=== PATIENT | female | born 2000 | race Caucasian/White ===

== ENCOUNTER 2019-04-09 05:00 | Inpatient (IN) ==
[2019-04-09] MEDS ORDERED: Naloxone 0.4 MG/ML INJ IVP PRN (05:05)
[2019-04-09] MEDS ORDERED: Metoclopramide 10 MG/2 ML VIAL IVP PRN (05:05)
[2019-04-09] MEDS ORDERED: miSOPROStoL 25 MCG TABLET PO PRN (05:05)
[2019-04-09] MEDS ORDERED: Famotidine 20 MG/2 ML VIAL IVP PRN (05:05)
[2019-04-09] MEDS ORDERED: Ondansetron 4 MG/2 ML VIAL IVP PRN (05:05)
[2019-04-09] MEDS ORDERED: Lidocaine 1% 20 ML MDV INFILT PRN (05:05)
[2019-04-09] MEDS ORDERED: D5% in 0.45% NACL 1,000 ML IVC SCH (05:15)
[2019-04-09 05:54] LABS: Basophils % 0.3 %; Eosinophils # 0.1 K/mcL (0.0-0.6); Eosinophils % 1.1 %; Hematocrit 36.8 % (35.3-44.9); Hemoglobin 12.3 g/dL (11.5-15.4); Immature Granulocytes % 0.5 % (0-4); Lymphocytes % 22.7 %; Mean Corpuscular HGB Conc 33.4 g/dL (31.6-35.5); Mean Corpuscular Hemoglobin 31.1 pg (28.0-33.3); Mean Corpuscular Volume 93.2 fL (83.0-100.0); Monocytes # 0.7 K/mcL (0.0-1.3); Monocytes % 7.9 %; Neutrophils # 5.9 K/mcL (1.6-8.9); Platelet Count 228 K/mcL (140-400); Red Blood Count 3.95 M/mcL (3.82-4.97); Red Cell Distribution Width 12.5 % (11.5-14.5); Segmented Neutrophils % 67.5 %; White Blood Count 8.8 K/mcL (4.3-11.1)
[2019-04-09 06:02] LABS: Amphetamine Screen,Urine Negative ng/mL (Cutoff=1000); Barbiturate Screen,Urine Negative ng/mL (Cutoff=200); Benzodiazepines Screen,Urine Negative ng/mL (Cutoff=200); Cannabinoid Screen,Urine Negative ng/mL (Cutoff = 50); Cocaine Screen,Urine Negative ng/mL (Cutoff= 300); Opiate Screen,Urine Negative ng/mL (Cutoff=300); Phencyclidine Screen,Urine Negative ng/mL (Cutoff=25)
[2019-04-09] MEDS ORDERED: Oxytocin 20 units/ LR 1000 mL 20 UNIT/1,000 ML BAG IVC SCH (13:15)
[2019-04-09] MEDS ORDERED: EPHEDrine 50 MG/ML VIAL IVP PRN (13:34)
[2019-04-09] MEDS ORDERED: Ringers Solution, Lactated 1,000 ML ONE ×2 (13:38→14:02)
[2019-04-09] MEDS ORDERED: Epidural Premix (fent/bupiv) 110 ML EP SCH (13:45)
[2019-04-09] MEDS: *HR* Nalbuphine 10 MG/ML AMPUL IVP PRN ×2 (15:49→17:52)
[2019-04-09] MEDS ORDERED: *HR* FentaNYL (PF) 100 MCG/2 ML VIAL ONE (20:52)
[2019-04-09] MEDS ORDERED: Ropivacaine/PF 0.2% 20 ML VIAL ONE (20:52)
[2019-04-10] MEDS ORDERED: Oxytocin 20 units/ LR 1000 mL 20 UNIT/1,000 ML BAG IVC SCH (00:19)
[2019-04-10] MEDS ORDERED: Benzocaine/Menthol 56 GM AEROSOL SPRAY TP PRN (00:19)
[2019-04-10] MEDS ORDERED: Rho Immune Globulin 1,500 UNIT SYRINGE IM PRN (00:19)
[2019-04-10] MEDS: Ibuprofen 600 MG TABLET PO SCH ×3 (06:16→18:52)
[2019-04-10] MEDS: Acetaminophen 325 MG TABLET PO SCH ×3 (08:27→20:44)
[2019-04-10] MEDS: Prenatal Vit/FA 1 EACH TABLET PO SCH (08:27)
[2019-04-10] MEDS: Lanolin 7 G OINT...G. TP PRN ×2 (18:51→20:45)
[2019-04-11] MEDS: Ibuprofen 800 MG TABLET PO PRN ×2 (01:11→09:02)
[2019-04-11] MEDS: Prenatal Vit/FA 1 EACH TABLET PO SCH (09:02)
[2019-04-11] MEDS: Lanolin 7 G OINT...G. TP PRN (09:13)
[2019-04-11 09:43] VITALS: BP 113/73
== END 2019-04-11 12:40 | disposition home or self-care (01) | DRG 560 ==
LOC: 1NENULAB 05:03 → 1NENUOBS 04-10 00:20
PROVIDERS: ADMIT Obstetrics & Gynecology; ATTEND Obstetrics & Gynecology

== ENCOUNTER → 2021-08-21 05:00 | Observation (INO) ==
[2021-08-21 02:47] LABS: Basophils % 0.3 %; Eosinophils # 0.1 K/mcL (0.0-0.6); Eosinophils % 0.8 %; Hematocrit 33.2 % (35.3-44.9); Hemoglobin 11.4 g/dL (11.5-15.4); Immature Granulocytes % 0.5 % (0-4); Lymphocytes # 1.6 K/mcL (0.6-4.6); Lymphocytes % 13.2 %; Mean Corpuscular HGB Conc 34.3 g/dL (31.6-35.5); Mean Corpuscular Hemoglobin 30.7 pg (28.0-33.3); Mean Corpuscular Volume 89.5 fL (83.0-100.0); Mean Platelet Volume 10.6 fL (9.4-12.4); Monocytes # 0.9 K/mcL (0.0-1.3); Monocytes % 7.5 %; Neutrophils # 9.2 K/mcL (1.6-8.9); Platelet Count 220 K/mcL (140-400); Red Blood Count 3.71 M/mcL (3.82-4.97); Red Cell Distribution Width 12.5 % (11.5-14.5); Segmented Neutrophils % 77.7 %; White Blood Count 11.9 K/mcL (4.3-11.1)
[2021-08-21 02:51] LABS: Bacteria,Urine Few per hpf (None-Few); Bilirubin,Urine Negative (Negative); Blood,Urine Negative (Negative); Budding Yeast,Urine Few per hpf (None Seen); Clarity,Urine Turbid (Clear); Color,Urine Light-Yellow (Yellow); Glucose,Urine (UA) Normal (Normal); Ketones,Urine Negative (Negative); Leukocyte Esterase,Urine Moderate (Negative); Nitrite,Urine Negative (Negative); Protein,Urine Trace mg/dL (Neg-Trace); RBC,Urine 0-3 per hpf (0-3); Specific Gravity,Urine 1.016 (1.010-1.025); Squamous Epithelial Cell,Urine Moderate per hpf (None-Few); Urobilinogen,Urine Normal (Normal); WBC,Urine 0-3 per hpf (0-3)
[2021-08-21 04:03] LABS: Albumin 3.7 g/dL (3.5-5.7); Albumin/Globulin Ratio 1.3 (1.1-2.2); Bilirubin,Indirect 0.3 mg/dL (0.0-1.0); Bilirubin,Total 0.3 mg/dL (0.3-1.0); Globulin 2.8 g/dL (2.4-3.5); Total Protein 6.5 g/dL (6.4-8.9)
[~2021-08-21 05:00] MED LIST: Morphine Sulfate 2 MG/ML SYRINGE IVP PRN; Ondansetron 4 MG/2 ML VIAL IVP PRN; Ringers Solution, Lactated 1,000 ML IVC SCH
== END | disposition other institution (70) ==
LOC: 1NENULAB
PROVIDERS: ADMIT Registered Nurse; ATTEND Registered Nurse

== ENCOUNTER → 2021-12-21 09:11 | Observation (INO) ==
[2021-12-21 05:51] LABS: Bacteria,Urine Few per hpf (None-Few); Bilirubin,Urine Negative (Negative); Blood,Urine Negative (Negative); Clarity,Urine Turbid (Clear); Color,Urine Yellow (Yellow); Glucose,Urine (UA) Normal (Normal); Ketones,Urine Trace mg/dL (Negative); Leukocyte Esterase,Urine Large (Negative); Mucus,Urine Few per lpf (None-Few); Nitrite,Urine Negative (Negative); Protein,Urine Trace mg/dL (Neg-Trace); Specific Gravity,Urine 1.021 (1.010-1.025); Squamous Epithelial Cell,Urine Few per hpf (None-Few); Urobilinogen,Urine Normal (Normal); WBC,Urine 30-50 per hpf (0-3)
== END | disposition home or self-care (01) ==
LOC: 1NENULAB
PROVIDERS: ADMIT Advanced Practice Midwife; ATTEND Advanced Practice Midwife

== ENCOUNTER 2022-01-01 05:57 | Inpatient (IN) ==
[2022-01-01] MEDS ORDERED: Metoclopramide 10 MG/2 ML VIAL IVP PRN (06:10)
[2022-01-01] MEDS ORDERED: Naloxone 0.4 MG/ML INJ IVP PRN (06:10)
[2022-01-01] MEDS ORDERED: miSOPROStoL 25 MCG TABLET PO PRN (06:10)
[2022-01-01] MEDS ORDERED: Azithromycin 500 MG in 0.9 % Sodium Chloride 250 ML IVPB PRN (06:10)
[2022-01-01] MEDS ORDERED: Famotidine 20 MG/2 ML VIAL IVP PRN (06:10)
[2022-01-01] MEDS ORDERED: Ondansetron 4 MG/2 ML VIAL IVP PRN (06:10)
[2022-01-01] MEDS ORDERED: *HR* Nalbuphine 10 MG/ML AMPUL IV PRN (06:10)
[2022-01-01] MEDS ORDERED: Oxytocin 30 UNIT/503 ML BAG IVC SCH ×2 (06:15→20:29)
[2022-01-01] MEDS ORDERED: EPHEDrine sulfate 50 MG/10 ML VIAL IVP PRN (06:46)
[2022-01-01] MEDS ORDERED: Epidural Premix (fent/bupiv) 110 ML EP SCH (07:00)
[2022-01-01] MEDS ORDERED: Penicillin G Potassium 5,000,000 UNIT in 0.9 % Sodium Chloride Mini Bag 100 ML IVPB ONE (07:39)
[2022-01-01 07:53] LABS: Basophils % 0.4 %; Eosinophils # 0.1 K/mcL (0.0-0.6); Eosinophils % 1.3 %; Hematocrit 32.3 % (35.3-44.9); Hemoglobin 10.5 g/dL (11.5-15.4); Immature Granulocytes % 0.4 % (0-4); Lymphocytes # 2.1 K/mcL (0.6-4.6); Lymphocytes % 28.8 %; Mean Corpuscular HGB Conc 32.5 g/dL (31.6-35.5); Mean Corpuscular Hemoglobin 27.8 pg (28.0-33.3); Mean Corpuscular Volume 85.4 fL (83.0-100.0); Mean Platelet Volume 10.8 fL (9.4-12.4); Monocytes # 0.7 K/mcL (0.0-1.3); Neutrophils # 4.2 K/mcL (1.6-8.9); Platelet Count 240 K/mcL (140-400); Red Blood Count 3.78 M/mcL (3.82-4.97); Red Cell Distribution Width 13.3 % (11.5-14.5); Segmented Neutrophils % 59.1 %; White Blood Count 7.1 K/mcL (4.3-11.1)
[2022-01-01 07:59] LABS: Amphetamine Screen,Urine Negative ng/mL (Cutoff=1000); Barbiturate Screen,Urine Negative ng/mL (Cutoff=200); Cannabinoid Screen,Urine Negative ng/mL (Cutoff = 50); Cocaine Screen,Urine Negative ng/mL (Cutoff= 300); Opiate Screen,Urine Negative ng/mL (Cutoff=300); Phencyclidine Screen,Urine Negative ng/mL (Cutoff=25)
[2022-01-01] MEDS: Ringers Solution, Lactated 1,000 ML IVC SCH ×2 (08:08→13:21)
[2022-01-01 10:56] LABS: Benzodiazepines Screen,Urine Positive ng/mL (Cutoff=200)
[2022-01-01] MEDS: Penicillin G Potassium 2,500,000 UNIT/105 ML MLS IVPB SCH ×2 (11:51→16:05)
[2022-01-01] MEDS ORDERED: Ondansetron ODT 4 MG TAB.RAPDIS SL PRN (20:29)
[2022-01-01] MEDS ORDERED: Benzocaine/Menthol 56 GM AEROSOL SPRAY TP PRN (20:29)
[2022-01-01] MEDS ORDERED: Lanolin 7 G OINT...G. TP PRN (20:29)
[2022-01-01] MEDS: Acetaminophen 325 MG TABLET PO SCH (21:37)
[2022-01-01] MEDS: Ibuprofen 600 MG TABLET PO SCH (21:38)
[2022-01-02 04:57] LABS: Basophils % 0.3 %; Eosinophils # 0.1 K/mcL (0.0-0.6); Eosinophils % 0.8 %; Hematocrit 30.5 % (35.3-44.9); Hemoglobin 9.7 g/dL (11.5-15.4); Immature Granulocytes % 0.3 % (0-4); Lymphocytes # 2.1 K/mcL (0.6-4.6); Lymphocytes % 20.7 %; Mean Corpuscular HGB Conc 31.8 g/dL (31.6-35.5); Mean Corpuscular Hemoglobin 27.6 pg (28.0-33.3); Mean Corpuscular Volume 86.9 fL (83.0-100.0); Mean Platelet Volume 10.8 fL (9.4-12.4); Monocytes % 9.5 %; Neutrophils # 6.8 K/mcL (1.6-8.9); Platelet Count 220 K/mcL (140-400); Red Blood Count 3.51 M/mcL (3.82-4.97); Red Cell Distribution Width 13.3 % (11.5-14.5); Segmented Neutrophils % 68.4 %
[2022-01-02] MEDS: Acetaminophen 325 MG TABLET PO SCH ×3 (06:38→16:33)
[2022-01-02] MEDS: Ibuprofen 600 MG TABLET PO SCH ×3 (06:38→16:33)
[2022-01-02] MEDS ORDERED: Prenatal Vit/FA 1 EACH TABLET PO SCH (09:00)
[2022-01-02 17:45] VITALS: BP 110/67; PULSE 78; TEMP 98; O2SAT 96
== END 2022-01-02 18:50 | disposition home or self-care (01) | DRG 560 ==
LOC: 1NENULAB 05:57
PROVIDERS: ADMIT Advanced Practice Midwife; ATTEND Advanced Practice Midwife